=== PATIENT | male | born 1970 | race American Indian/Alaskan Native ===

== ENCOUNTER 2018-04-10 08:46 | Emergency (ER) | payer OTHER ==
[2018-04-10 09:11] VITALS: BP 135/85; PULSE 67; RESP 18; TEMP 99.7; O2SAT 100
--- NOTE | 2018-04-10 09:47 | RAD ---
Date of service: 04/10/2018 PROCEDURE: Radiographs of the Chest and Left Ribs. HISTORY: fall, L lateral ribs COMPARISON: None available. TECHNIQUE: Frontal radiograph of the chest and multiple oblique radiographs of the left ribs were obtained. FINDINGS: LEFT RIBS: No acute fracture or focal lesion visualized. LUNGS: The lungs are well inflated and clear. PLEURA: No pneumothorax or pleural fluid. CARDIOVASCULAR: Normal sized heart. No pulmonary vascular congestion. OTHER FINDINGS: None. IMPRESSION: Clear lungs. No acute left rib fracture.
--- NOTE | 2018-04-10 10:11 | C.PDOC ---
History Of Present Illness 48 y/o male presents to the ED complaining of left lateral rib pain s/p mechanical fall today. Patient states he accidentally slipped and fell onto the left side this morning. He now complains of pain only to the left ribs. No head trauma or LOC. No back or neck pain. Otherwise patient denies any SOB, dizziness , chest pain, nausea, vomiting, headache, or other injuries. Time Seen by Provider: 04/10/18 09:24 Chief Complaint (Nursing): Back Pain History Per: Patient History/Exam Limitations: no limitations Onset/Duration Of Symptoms: Hrs Current Symptoms Are (Timing): Still Present Past Medical History Reviewed: Historical Data, Nursing Documentation, Vital Signs Vital Signs: Last Vital Signs Temp 99.7 F H 04/10/18 08:50 Pulse 67 04/10/18 08:50 Resp 18 04/10/18 10:14 BP 135/85 04/10/18 08:50 Pulse Ox 100 04/10/18 10:43 - Medical History PMH: Back Problems, HTN Surgical History: Back Surgery (Lumbar fusion) Family History: States: No Known Family Hx - Social History Hx Tobacco Use: No Hx Alcohol Use: No Hx Substance Use: No Review Of Systems Except As Marked, All Systems Reviewed And Found Negative. Constitutional: Negative for: Fever Eyes: Negative for: Vision Change Cardiovascular: Negative for: Chest Pain Respiratory: Negative for: Shortness of Breath Gastrointestinal: Negative for: Nausea, Vomiting, Abdominal Pain Musculoskeletal: Positive for: Other (Left lateral rib pain) Skin: Negative for: Lesions, Bruising Neurological: Negative for: Weakness, Numbness, Incoordination, Headache, Dizziness Physical Exam - Physical Exam Appears: Non-toxic, No Acute Distress Skin: Normal Color, Warm, Dry Head: Atraumatic, Normacephalic Eye(s): bilateral: Normal Inspection, PERRL, EOMI Nose: Normal Oral Mucosa: Moist Neck: Normal ROM, No Midline Cervical Tenderness, Supple Chest: Symmetrical, Tenderness (Diffuse tenderness over left lateral rib area, no point tenderness) Cardiovascular: Rhythm Regular, No Murmur Respiratory: Normal Breath Sounds, No Rales, No Rhonchi, No Wheezing Back: Normal Inspection, No CVA Tenderness, No Vertebral Tenderness Extremity: Bilateral: Atraumatic, Normal Color And Temperature, Normal ROM Neurological/Psych: Oriented x3, Normal Speech, Normal Cranial Nerves Gait: Steady ED Course And Treatment O2 Sat by Pulse Oximetry: 100 (RA) Pulse Ox Interpretation: Normal - Other Rad L ribs X-Ray: Interpreted by Me, Read By Radiologist (neg) Medical Decision Making Medical Decision Making: Plan: * Left ribs/chest x-ray * Motrin PO Impression: L lateral rib contusion, slip and fall no rib fx improved with NSAIDS/ICE Disposition Doctor Will See Patient In The: Office Counseled Patient/Family Regarding: Studies Performed, Diagnosis - Disposition Referrals: Rocky Shanks MD [Staff Provider] - Disposition: HOME/ ROUTINE Disposition Time: 10:10 Condition: GOOD Additional Instructions: bags of ice 1/2 hour per hour, nothing hot Motrin/Advil/Ibuprofen 400-600 mg every 6 hours as needed This will hurt for a week! Instructions: Bruised Rib (DC) Forms: [employer] (Khmer) - Clinical Impression Clinical Impression: Contusion of rib on left side - Scribe Statement The provider has reviewed the documentation as recorded by the Caden Yap Provider Attestation: All medical record entries made by the Joseibstefani were at my direction and personally dictated by me. I have reviewed the chart and agree that the record accurately reflects my personal performance of the history, physical exam, medical decision making, and the department course for this patient. I have also personally directed, reviewed, and agree with the discharge instructions and disposition.
== END 2018-04-10 10:16 | disposition home or self-care (01) ==
LOC: C.ER 08:46
DX: S20.212A Contusion of left front wall of thorax, initial encounter (principal); W01.0XXA Fall on same level from slipping, tripping and stumbling without subsequent striking against object, initial encounter